=== PATIENT | female | born 2000 | race Caucasian/White ===

== ENCOUNTER 2019-12-04 21:53 | Emergency (ER) | payer SELFPAY ==
[~2019-12-04] VITALS: Ht 172.7 cm; Wt 59.0 kg
[2019-12-04] MEDS ORDERED: METOCLOPRAMIDE HCL 10 MG/2 ML VIAL. IVP ONE (22:15)
[2019-12-04] MEDS ORDERED: IV NORMAL SALINE 1,000ML 1,000 ML IV ONE (22:15)
[2019-12-04] MEDS ORDERED: diphenhydrAMINE 50 MG/ML VIAL IVP ONE (22:15)
--- NOTE | 2019-12-04 22:16 | PHYS DOC ---
Past History Past Medical History: Depression, Migraines, Other Additional Past Medical Histor: panic disorder Past Surgical History: No Surgical History Smoking: Non-smoker Alcohol Use: None General Adult EDM: Chief Complaint: HEADACHE HPI: HPI: Patient is a 19 year old female who presents for evaluation of frontal headache. Patient further complains of nausea and light sensitivity. Patient states the symptom onset was about 3 PM today. Patient has a history of chronic migraines. Prior to arrival she took sumatriptan and Zofran with minimal improvement of symptoms. Patient is in mild distress. There is no reported deficits or other complaints. Patient states she is currently on her menstrual cycle Review of Systems: Review of Systems: Constitutional: Denies fever or chills Eyes: Denies change in visual acuity HENT: Denies nasal congestion or sore throat Respiratory: Denies cough or shortness of breath Cardiovascular: Denies chest pain or edema GI: Denies abdominal pain, has nausea, no vomiting, no bloody stools or di arrhea : Denies dysuria Musculoskeletal: Denies back pain or joint pain Integument: Denies rash Neurologic: has frontal headache, no focal weakness or sensory changes Endocrine: Denies polyuria or polydipsia Lymphatic: Denies swollen glands Psychiatric: Denies depression or anxiety Heart Score: Risk Factors: Risk Factors: DM, Current or recent (<one month) smoker, HTN, HLP, family history of CAD, obesity. Risk Scores: Score 0 - 3: 2.5% MACE over next 6 weeks - Discharge Home Score 4 - 6: 20.3% MACE over next 6 weeks - Admit for Clinical Observation Score 7 - 10: 72.7% MACE over next 6 weeks - Early Invasive Strategies Allergies: Allergies: Allergies Uncoded Allergies Type Severity Reaction Last Updated Verified antibiotics Allergy Unknown 12/04/19 Physical Exam: PE: Constitutional: Well developed, well nourished, no acute distress, non-toxic appearance. [] HENT: Normocephalic, atraumatic, bilateral external ears normal, oropharynx moist, no oral exudates, nose normal. [] Eyes: PERRL, EOMI, conjunctiva normal, no discharge. [] Neck: Normal range of motion, no tenderness, supple, no stridor. [] Cardiovascular:Heart rate regular rhythm, no murmur [] Lungs & Thorax: Bilateral breath sounds clear to auscultation [] Abdomen: Bowel sounds normal, soft, no tenderness, no masses, no pulsatile masses. [] Skin: Warm, dry, no erythema, no rash. [] Back: No tenderness. [] Extremities: No tenderness, no cyanosis, no clubbing, ROM intact, no edema. [] Neurologic: Alert and oriented X 3, normal motor function, normal sensory function, no focal deficits noted. [] Psychologic: Affect normal, judgement normal, mild anxious mood [] Current Patient Data: Labs: POC urine preg test; neg Vital Signs: Vital Signs Date Time Temp Pulse Resp B/P (MAP) Pulse Ox O2 Delivery O2 Flow Rate FiO2 12/04/19 22:00 99.8 65 18 148/97 (114) 98 Room Air EKG: EKG: [] Radiology/Procedures: Radiology/Procedures: [] Course & Med Decision Making: Course & Med Decision Making Pertinent Labs and Imaging studies reviewed. (See chart for details) 2315 Stable, feeling better. Still moderately nervous but she refused toradol or ativan. States she was worried she might have a medication reaction. [employer] Disclaimer: [employer] Disclaimer: This electronic medical record was generated, in whole or in part, using a voice recognition dictation system. Departure Departure: Impression: Primary Impression: Headache Qualified Codes: R51 - Headache Additional Impression: Anxiety Disposition: 01 HOME/RESIDENCE PRIOR TO ADM Condition: STABLE Referrals: RENA CELAYA MD (PCP) Patient Instructions: Anxiety and Panic Attacks, [id number], Migraine Headache Additional Instructions: Drink plenty fluids, rest, rested tomorrow from work, see your headache doctor right away since your prior prescribed medication is not as effective Justification of Admission: Justification of Admission: Justification of Admission Dx: N/A LAURA BRIGGS DO Dec 04, 2019 22:16
[2019-12-04 23:00] VITALS: BP 127/83
[2019-12-04] MEDS ORDERED: KETOROLAC 15 MG/ML VIAL. IVP ONE (23:30)
[2019-12-04] MEDS ORDERED: LORazepam 1 MG TABLET PO ONE (23:30)
== END 2019-12-04 23:25 | disposition home or self-care (01) ==
LOC: ER 21:53
DX: G43.909 Migraine, unspecified, not intractable, without status migrainosus (principal); F41.9 Anxiety disorder, unspecified
CPT/HCPCS: 81025; 96374; 96375; 99284; J1200; J2765; J7030